=== PATIENT | male | born 1995 | race Caucasian/White ===

== ENCOUNTER 2017-12-04 21:52 | Emergency (ER) | payer OTHER ==
[~2017-12-04] VITALS: Ht 185.4 cm; Wt 106.6 kg
[2017-12-04 23:59] VITALS: BP 120/60
== END 2017-12-04 23:59 | disposition home or self-care (01) ==
LOC: ED 21:52
DX: S09.90XA Unspecified injury of head, initial encounter (principal); S60.512A Abrasion of left hand, initial encounter; W20.8XXA Other cause of strike by thrown, projected or falling object, initial encounter; Y93.89 Activity, other specified; Y92.89 Other specified places as the place of occurrence of the external cause; Y99.8 Other external cause status
CPT/HCPCS: 90715

== ENCOUNTER 2017-12-26 04:32 | Emergency (ER) | payer OTHER ==
[~2017-12-26] VITALS: Ht 185.4 cm; Wt 110.2 kg
[2017-12-26 04:38] VITALS: Ht 185.4 cm; Wt 110.2 kg
[2017-12-26 05:52] VITALS: BP 162/63
== END 2017-12-26 05:10 | disposition home or self-care (01) ==
LOC: ED 04:32
DX: S63.614A Unspecified sprain of right ring finger, initial encounter (principal); V19.9XXA Pedal cyclist (driver) (passenger) injured in unspecified traffic accident, initial encounter; Y93.I9 Activity, other involving external motion; Y92.89 Other specified places as the place of occurrence of the external cause; Y99.8 Other external cause status

== ENCOUNTER 2017-12-27 09:18 | Emergency (ER) | payer OTHER ==
[~2017-12-27] VITALS: Ht 188 cm; Wt 110.2 kg
[2017-12-27 09:24] VITALS: Ht 188 cm; Wt 110.2 kg
[2017-12-27 16:50] VITALS: BP 132/57
== END 2017-12-27 11:00 | disposition home or self-care (01) ==
LOC: ED 09:18
DX: Z00.00 Encounter for general adult medical examination without abnormal findings (principal)

== ENCOUNTER 2018-01-15 13:10 | Emergency (ER) | payer OTHER ==
[~2018-01-15] VITALS: Ht 185.4 cm; Wt 104.3 kg
[2018-01-15 13:42] VITALS: Ht 185.4 cm; Wt 104.3 kg
[2018-01-15 14:52] VITALS: BP 130/81
== END 2018-01-15 14:52 | disposition home or self-care (01) ==
LOC: ED 13:10
DX: K52.9 Noninfective gastroenteritis and colitis, unspecified (principal)

== ENCOUNTER 2018-04-23 16:27 | Emergency (ER) | payer OTHER ==
[~2018-04-23] VITALS: Ht 188 cm; Wt 117.9 kg
[2018-04-23 16:33] VITALS: Ht 188 cm; Wt 117.9 kg
[2018-04-23 18:24] VITALS: BP 133/64
== END 2018-04-23 18:24 | disposition other institution (70) ==
LOC: ED 16:27
DX: S00.03XA Contusion of scalp, initial encounter (principal); S10.93XA Contusion of unspecified part of neck, initial encounter; F17.210 Nicotine dependence, cigarettes, uncomplicated; Y04.1XXA Assault by human bite, initial encounter; Y93.89 Activity, other specified; Y92.89 Other specified places as the place of occurrence of the external cause; Y99.8 Other external cause status
CPT/HCPCS: 90714; 99406; J1885

== ENCOUNTER → 2018-04-23 | Emergency (ER) | payer OTHER | LOC: ED 16:27 | DX: Z02.89 Encounter for other administrative examinations (principal) ==

== ENCOUNTER 2020-01-26 18:38 | Emergency (ER) | payer OTHER ==
[~2020-01-26] VITALS: Ht 190.5 cm; Wt 110.2 kg
[2020-01-26 18:55] VITALS: Ht 190.5 cm; Wt 110.2 kg
[2020-01-26 20:56] VITALS: BP 158/97
== END 2020-01-26 20:57 | disposition home or self-care (01) ==
LOC: ED 18:38
DX: E86.0 Dehydration (principal); Z11.3 Encounter for screening for infections with a predominantly sexual mode of transmission
CPT/HCPCS: 87491; 87591

== ENCOUNTER 2020-05-17 18:51 | Emergency (ER) | payer OTHER ==
[~2020-05-17] VITALS: Ht 193 cm; Wt 98.9 kg
[2020-05-17 19:31] VITALS: Ht 193 cm; Wt 98.9 kg
[2020-05-17 20:30] VITALS: BP 122/75
== END 2020-05-17 20:30 | disposition home or self-care (01) ==
LOC: ED 18:51
DX: L02.414 Cutaneous abscess of left upper limb (principal)
CPT/HCPCS: J2001